=== PATIENT | male | born 1940 | race Caucasian/White ===

== ENCOUNTER 2018-01-30 09:27 | Emergency (ER) | payer MEDICARE ==
[2018-01-30 09:30] VITALS: BP 152/70
[2018-01-30] MEDS ORDERED: ASPI-1471 PO (09:32)
[2018-01-30] MEDS ORDERED: LEVO50TA86 PO (09:32)
[2018-01-30] MEDS ORDERED: LISI20TA29 PO (09:32)
[2018-01-30] MEDS ORDERED: METO25TA23 PO (09:32)
[2018-01-30] MEDS ORDERED: ENT KIT ONE (09:40)
--- NOTE | 2018-01-30 09:47 | ER Report ---
History and Physical Time Seen By MD: 09:47 Hx. of Stated Complaint: NOSE BLEED X 3 HOURS (ROSALVA LEMOS MD) Time Seen By MD: 11:02 (DARLENE HARRIS) HPI/ROS CHIEF COMPLAINT: Nosebleed HISTORY OF PRESENT ILLNESS: This is a 77-year-old male who presents to the emergency department for any nosebleed or patient states that his were [facility] and [place], and this morning developed a nosebleed was unable to get it to stop. Decided to come to the emergency department for further evaluation. The blood was bright red according to the patient, the left Mc was the only one involved. Upon arrival the nosebleed had mostly resolved did have some residual intermittent bleeding. Patient takes a daily 81 mg aspirin otherwise no anticoagulation. No recent illnesses, no nausea or vomiting. No chest pain or shortness of breath. REVIEW OF SYSTEMS: Respiratory: No cough, no dyspnea. Cardiovascular: No chest pain, no palpitations. Gastrointestinal: No vomiting, no abdominal pain. Musculoskeletal: No back pain. Nasal: As above. (DARLENE HARRIS) Allergies: Coded Allergies: No Known Drug Allergies (Unverified , 01/30/18) Home Meds Reported Medications Aspirin (ASPIR 81) 81 Mg Tablet.dr, 81 MG PO QDAY, TAB 01/30/18 Levothyroxine Sodium (LEVOTHYROXINE SODIUM) 50 Mcg Tablet, PO QDAY, TAB 01/30/18 Metoprolol Succinate (METOPROLOL SUCCINATE) 25 Mg Tab.er.24h, 1 TAB PO QDAY, TAB 01/30/18 Lisinopril (LISINOPRIL) 20 Mg Tablet, 20 MG PO QDAY, TAB 01/30/18 Past Medical/Surgical History The patient has a past medical and surgical history of hypertension, hypercholesterolemia, hypothyroidism, prostate cancer, prostatectomy, C5 fusion. (DARLENE HARRIS) Reviewed Nurses Notes: Yes (DARLENE HARRIS) Constitutional Vital Sign - Last 24 Hours 01/30/18 09:30 Temp 97.5 Pulse 69 Resp 16 B/P (MAP) 152/70 Pulse Ox 96 (DARLENE HARRIS) Physical Exam General Appearance: The patient is alert, has no immediate need for airway protection and no current signs of toxicity. Eyes: Pupils equal and round no injection. ENT: Left there with very scant amount of bright red blood, not actively bleeding, no clots. Respiratory: Chest is non tender, lungs are clear to auscultation. Cardiac: regular rate and rhythm. Gastrointestinal: Abdomen is soft and non tender, no masses, bowel sounds normal. Musculoskeletal: Neck: Neck is supple and non tender. Extremities have full range of motion and are non tender. Skin: No rashes or lesions. DIFFERENTIAL DIAGNOSIS: After history and physical exam differential diagnosis was considered for nosebleed. (DARLENE HARRIS) Medical Decision Making ED Course/Re-evaluation ED Course The patient was admitted to a room. A history physical were obtained. Differential diagnoses were considered. Upon arrival the patient had just a very scant amount of bleeding from the left knee are, no clots. Several doses of Pedro- Synephrine were sprayed in the left nares, patient tolerated well. The patient's, his and I discussed at length how to help mitigate nosebleeds in the future, the patient was sent home with the Pedro-Synephrine given instructions on how to use the anal spray, ultimately was encouraged to follow up with his primary care provider when they return to [place] or an offbearer. The patient had no other questions or concerns at this time and was discharged home. No bleeding at the time of discharge. Decision to Disposition Date: Jan 30, 2018 Decision to Disposition Time: 11:15 (DARLENE HARRIS-JESSIE) Depart Departure Latest Vital Signs Vital Signs Date Time Temp Pulse Resp B/P (MAP) Pulse Ox O2 Delivery O2 Flow Rate FiO2 01/30/18 09:30 97.5 69 16 152/70 96 (DARLENE HARRIS-) Impression: Primary Impression: Epistaxis Condition: Improved Disposition: HOME OR SELF-CARE Patient Instructions: Nosebleed (ED) Additional Instructions: Keep continuous pressure on the soft part of the nose for at least 30minutes before releasing, keep the head forward and spit out any clots or blood. Use the bacitracin to apply a thin film in the nare to keep it moist. If you need to use the Norsynephrine, do so but only 1-2 times a day. If the bleeding does not resolve, you can also try a cold compress to the back of the neck or the nose. Drink plenty of water. Get plenty of rest. continue to hold on aspirin for the next 2 days then restart. Return to the Ed for any other concerns or worsening symptoms. ROSALVA LEMOS MD Jan 30, 2018 09:47 DARLENE HARRISP-BC Jan 30, 2018 11:02
[2018-01-30] MEDS ORDERED: PHENYLEPHRINE 0.5% 15 ML BTL ONE (11:40)
== END 2018-01-30 11:21 | disposition home or self-care (01) ==
LOC: ER 09:50
DX: R04.0 Epistaxis (principal)
CPT/HCPCS: 30901; 99282; A9270